=== PATIENT | male | born 1990 | race Two or more races ===

== ENCOUNTER 2024-05-02 01:52 | Inpatient (IN) | payer MEDICAID ==
[~2024-05-02] VITALS: Ht 172.7 cm; Wt 69.9 kg
[2024-05-02] MEDS ORDERED: LORazepam 2 MG/ML VIAL ONE (02:42)
[2024-05-02] MEDS ORDERED: DiphenhydrAMINE HCL 50 MG/ML VIAL ONE (02:42)
[2024-05-02] MEDS ORDERED: HALOPERIDOL LACTATE 5 MG/ML VIAL ONE (02:42)
[2024-05-02] MEDS ORDERED: HALOPERIDOL LACTATE 5 MG/ML VIAL IM ONE (02:45)
[2024-05-02] MEDS: LORazepam 2 MG/ML VIAL IM ONE ×2 (03:03→08:57)
[2024-05-02] MEDS: DiphenhydrAMINE HCL 50 MG/ML VIAL IM ONE ×2 (03:04→08:58)
[2024-05-02] MEDS: HALOPERIDOL LACTATE 5 MG/ML VIAL IM ONE ×2 (03:06→08:58)
[2024-05-02 03:47] LABS: COVID AG,FIA SOURCE NASAL SWAB
[2024-05-02 03:51] LABS: BASOPHILS % (AUTO) 0.3 % (0.0-2.0); EOSINOPHILS % (AUTO) 0.1 % (1.0-6.0); HEMATOCRIT 43.1 % (41-53); HEMOGLOBIN 14.6 g/dL (13.5-17.5); LYMPHOCYTES # (AUTO) 1.1 K/uL (1.0-4.8); LYMPHOCYTES % (AUTO) 21.5 % (22.0-44.0); MEAN CORPUSCULAR HEMOGLOBIN 30.7 pg (26.0-34.0); MEAN CORPUSCULAR HGB CONC 33.8 G/dL (31.0-37.0); MEAN CORPUSCULAR VOLUME 91 fL (80-100); MONOCYTES # (AUTO) 0.4 K/uL (0.1-1.0); MONOCYTES % (AUTO) 8.2 % (2.0-9.0); NEUTROPHILS # (AUTO) 3.5 K/uL (1.8-7.7); NEUTROPHILS % (AUTO) 69.9 % (40.0-70.0); PLATELET COUNT (AUTO) 203 K/uL (150-450); RED BLOOD CELL COUNT(AUTO) 4.74 MIL/uL (4.50-5.90); RED CELL DISTRIBUTION WIDTH 12.6 % (11.5-14.5)
[2024-05-02 03:53] LABS: ANION GAP 13 mmol/L (8-16); CALCIUM, TOTAL 8.9 mg/dL (8.8-10.5); CARBON DIOXIDE 27 mmol/L (22-29); CHLORIDE 99 mmol/L (98-107); CREATININE 0.84 mg/dL (0.60-1.30); GLOMERULAR FILTR. RATE CALC > 60 mL/min (>60); GLUCOSE,RANDOM 114 mg/dL (70-110); SODIUM SERUM 139 mmol/L (136-145); UREA NITROGEN, BLOOD 9 mg/dL (7-18)
[2024-05-02 04:23] LABS: POTASSIUM 2.2 mmol/L (3.5-5.1)
[2024-05-02 04:25] LABS: ALCOHOL, BLOOD (SERUM) < 3 mg/dL (0-10)
[2024-05-02 04:38] LABS: SARS-COV2 (COVID) ANTIGEN,FIA Negative (Negative)
[2024-05-02] MEDS ORDERED: SODIUM CHLORIDE 0.9% 1,000 ML ONE (04:40)
[2024-05-02] MEDS: POTASSIUM CHL 10 MEQ/WATER 50 ML IV SCH (04:49)
[2024-05-02] MEDS: POTASSIUM CHLORIDE 20 MEQ ER TABLET PO ONE ×2 (06:38→16:23)
[2024-05-02 08:21] LABS: ALCOHOL, URINE DRUG SCREEN NEGATIVE (NEGATIVE); AMPHET/METH SCREEN,URINE NEGATIVE (NEGATIVE); BARBITURATE SCREEN, URINE NEGATIVE (NEGATIVE); BENZODIAZEPINES SCREEN,URINE NEGATIVE (NEGATIVE); CANNABINOID SCREEN,URINE POSITIVE (NEGATIVE); COCAINE SCREEN,URINE NEGATIVE (NEGATIVE); METHADONE SCREEN, URINE NEGATIVE (NEGATIVE); OPIATE SCREEN,URINE NEGATIVE (NEGATIVE); PHENCYCLIDINE SCREEN,URINE NEGATIVE (NEGATIVE)
[2024-05-02 08:44] LABS: APPEARANCE,URINE HAZY (CLEAR); BILIRUBIN,URINE NEGATIVE (NEGATIVE); COLOR,URINE YELLOW (YELLOW); GLUCOSE, URINE (UA) NEGATIVE (NEGATIVE); LEUKOCYTE ESTERASE ,URINE NEGATIVE (NEGATIVE); NITRATE,URINE NEGATIVE (NEGATIVE); OCCULT BLOOD,URINE NEGATIVE (NEGATIVE); PROTEIN,URINE TRACE mg/dL (NEGATIVE); SPECIFIC GRAVITIY, URINE 1.018 (1.003-1.030); UROBILINOGEN,URINE <=1.0 mg/dL (<=1.0)
[2024-05-02 19:28] VITALS: O2SAT 100
[2024-05-02] MEDS: LORazepam 2 MG TABLET PO PRN (20:41)
[2024-05-02] MEDS: HALOPERIDOL 5 MG TABLET PO PRN (20:41)
[2024-05-02] MEDS: ZOLPIDEM TARTRATE 10 MG TABLET PO PRN (20:42)
[2024-05-02 21:48] VITALS: BP 106/79; PULSE 69; RESP 19; O2SAT 98
[2024-05-02] MEDS ORDERED: INFLUENZA VIRUS VACCINE TVS (6MO+) 2024-25/PF 45 MCG/0.5 ML SYRINGE IM. ONE (22:00)
[2024-05-03] MEDS ORDERED: MAG HYDROX/ALUMINUM HYD/SIMETH ES 30 ML SUSPENSION UDCUP PO PRN (06:30)
[2024-05-03] MEDS ORDERED: IBUPROFEN 600 MG TABLET PO PRN (06:30)
[2024-05-03] MEDS ORDERED: PETROLATUM,WHITE 28 GM JELLY TP PRN (06:30)
[2024-05-03] MEDS ORDERED: OMEPRAZOLE 20 MG CAPSULE PO PRN (06:30)
[2024-05-03] MEDS ORDERED: MAGNESIUM HYDROXIDE SUSPENSION 30 ML UDCUP PO PRN (06:30)
[2024-05-03] MEDS ORDERED: LOPERAMIDE HCL 2 MG CAPSULE PO PRN (06:30)
[2024-05-03] MEDS ORDERED: CloNIDine HCL 0.1 MG TABLET PO PRN (06:30)
[2024-05-03] MEDS ORDERED: ONDANSETRON 4 MG TABLET PO PRN (06:30)
[2024-05-03] MEDS ORDERED: BENZOCAINE/MENTHOL LOZENGE PO PRN (06:30)
[2024-05-03] MEDS ORDERED: DOCUSATE SODIUM 100 MG CAPSULE PO PRN (06:30)
[2024-05-03] MEDS ORDERED: BACITRACIN 28 GM OINTMENT TP PRN (06:30)
[2024-05-03] MEDS ORDERED: ALBUTEROL SULFATE HFA 90 MCG/PUFF 8 GM INHALER IH PRN (06:30)
[2024-05-03 08:26] VITALS: BP 115/96; PULSE 89; RESP 18; TEMP 97.2; O2SAT 98
[2024-05-03 10:13] LABS: HEMOGLOBIN A1C 5.3 % (3.8-5.6)
[2024-05-03 10:32] LABS: ANION GAP 10 mmol/L (8-16); CALCIUM, TOTAL 9.2 mg/dL (8.8-10.5); CARBON DIOXIDE 26 mmol/L (22-29); CHLORIDE 101 mmol/L (98-107); CHOL/HDL RATIO 2.4 (4.2-7.3); CHOLESTEROL 146 mg/dL (131-200); CREATININE 0.74 mg/dL (0.60-1.30); FREE T4 (FREE THYROXINE) 1.35 ng/dL (0.76-1.46); GLOMERULAR FILTR. RATE CALC > 60 mL/min (>60); GLUCOSE,RANDOM 92 mg/dL (70-110); HDL CHOLESTEROL 61 mg/dL (40-60); LDL CHOL (CALC.) 69 mg/dL (0-130); POTASSIUM 3.4 mmol/L (3.5-5.1); SODIUM SERUM 137 mmol/L (136-145); TRIGLYCERIDES 79 mg/dL (15-150); UREA NITROGEN, BLOOD 6 mg/dL (7-18)
[2024-05-03] MEDS: PEG 400/HYPROMELLOSE/GLYCERIN 15 ML OPHTHALMIC SOLUTION OU PRN (15:39)
[2024-05-03] MEDS: PALIPERIDONE 6 MG ER TABLET PO SCH (20:02)
[2024-05-03 21:08] VITALS: RESP 18
[2024-05-04 08:27] VITALS: BP 113/69; PULSE 81; TEMP 97.9; O2SAT 95
[2024-05-04 10:18] VITALS: BP 118/72; PULSE 78; RESP 18
[2024-05-04] MEDS: ACETAMINOPHEN 325 MG TABLET PO PRN (10:21)
[2024-05-04 11:21] VITALS: RESP 16
[2024-05-04 20:34] VITALS: BP 226/95; PULSE 88; RESP 16; TEMP 97.3; O2SAT 96
[2024-05-05 08:50] VITALS: BP 103/62; PULSE 99; RESP 18; TEMP 97.8; O2SAT 99
[2024-05-05 08:52] VITALS: BP 103/62; PULSE 99; RESP 18; TEMP 97.8; O2SAT 99
== END 2024-05-05 10:00 | disposition home or self-care (01) | DRG 750 ==
LOC: EMS 01:52 → 3EC 20:58
PROVIDERS: ADMIT Psychiatry & Neurology Psychiatry; ATTEND Psychiatry & Neurology Psychiatry
DX: F20.9 Schizophrenia, unspecified (principal); Z91.148 Patient's other noncompliance with medication regimen for other reason; E87.6 Hypokalemia; F41.9 Anxiety disorder, unspecified; G47.00 Insomnia, unspecified; K59.00 Constipation, unspecified; F32.A Depression, unspecified; K21.9 Gastro-esophageal reflux disease without esophagitis; Z20.822 Contact with and (suspected) exposure to COVID-19; F19.10 Other psychoactive substance abuse, uncomplicated; F12.10 Cannabis abuse, uncomplicated; Z79.899 Other long term (current) drug therapy
CPT/HCPCS: 80048; 80061; 80307; 81003; 83036; 84132; 84439; 84481; 85025; 99285; G0480; J1200; J1630; J2060; J3480; J7030